=== PATIENT | female | born 1990 | race Caucasian/White ===

== ENCOUNTER 2021-09-06 18:26 | Day surgery (SDC) | payer BC ==
[2021-09-06 18:58] VITALS: BMI 33.3
[2021-09-06 20:15] LABS: Fetal Membranes Rupture No Membranes Rupture (No Rupture)
[2021-09-06 20:24] LABS: Bilirubin Neg (Negative); Blood, Urine Negative (Negative); Clarity Clear (Clear); Glucose, Urine (Dipstick) Normal (Negative); Ketone, Urine 15 mg/dL (Negative); Leukocyte Negative (Negative); Nitrite Negative (Negative); Protein, Urine (Dipstick) Negative (Neg-Trace); Specific Gravity, Urine 1.005 (1.002-1.036); Urobilinogen Normal mg/dL (Less than 2)
[2021-09-06 20:28] LABS: Urine Culture Reflex No No
[2021-09-06 20:41] LABS: RBC/HPF 0-3 HPF (0-3); WBC/HPF 0-3 HPF (0-3)
[2021-09-06 20:42] LABS: Bacteria/HPF None Seen HPF (None Seen); Squamous Epithelial 0-3 HPF (0-3)
[2021-09-06 21:05] LABS: SARS-CoV-2 NAA Rapid Test Not Detected (NotDetected)
[2021-09-06] MEDS ORDERED: hydrALAZINE 20 MG/ML VIAL SLOW IVP PRN (21:48)
== END 2021-09-06 21:30 | disposition home or self-care (01) ==
LOC: CSHLD/OP 18:26
PROVIDERS: ATTEND Student in an Organized Health Care Education/Training Program
DX: O99.891 Other specified diseases and conditions complicating pregnancy (principal); N89.8 Other specified noninflammatory disorders of vagina; R32 Unspecified urinary incontinence; O99.513 Diseases of the respiratory system complicating pregnancy, third trimester; J06.9 Acute upper respiratory infection, unspecified; O99.283 Endocrine, nutritional and metabolic diseases complicating pregnancy, third trimester; E03.9 Hypothyroidism, unspecified; Z3A.33 33 weeks gestation of pregnancy; Z79.890 Hormone replacement therapy; Z79.899 Other long term (current) drug therapy; Z20.822 Contact with and (suspected) exposure to COVID-19
CPT/HCPCS: 81001; 84112; 87480; 87510; 87660; 99285; U0002

== ENCOUNTER 2021-10-08 09:53 | Outpatient (CLI) | payer BC | END 2021-10-08 09:54 | disposition home or self-care (01) | LOC: CSHLAB 09:53 | PROVIDERS: ATTEND Student in an Organized Health Care Education/Training Program | DX: Z20.822 Contact with and (suspected) exposure to COVID-19 (principal) | CPT/HCPCS: 87811 ==